=== PATIENT | female | born 1940 | race Caucasian/White ===

== ENCOUNTER → 2019-12-07 12:57 | Outpatient (CLI) | payer MEDICARE, SELFPAY ==
[2019-12-08 08:56] LABS: SARS-COV-2 TOTAL ABS Nonreactive (Nonreactive)
== END ==
LOC: MTDU 13:04 → LAB 13:18
PROVIDERS: PCP Internal Medicine; Referring Provider Internal Medicine; Visit Provider Internal Medicine
DX: B34.9 Viral infection, unspecified (principal); Z01.84 Encounter for antibody response examination; R53.82 Chronic fatigue, unspecified
CPT/HCPCS: 86769; G2023